=== PATIENT | male | born 1980 | race Caucasian/White ===

== ENCOUNTER 2021-07-10 16:16 | Inpatient (IN) | payer SELFPAY ==
[~2021-07-10] VITALS: Ht 187.9 cm; Wt 111.7 kg
[2021-07-10 16:33] VITALS: BP 140/60
[2021-07-10 17:32] LABS: BASO # 0.1 10*3/uL (0.0-0.1); BASO % 0.8 % (0.0-1.0); EOS % 0.3 % (1.0-4.0); LYMPH # 1.2 10*3/uL (1.3-4.4); LYMPH % 16.2 % (27.0-41.0); MEAN CELL VOLUME 89.3 fl (80.0-94.0); MEAN CORPUSCULAR HGB 29.6 pg (27.0-31.0); MEAN CORPUSCULAR HGB CONC 33.1 g/dl (33.0-37.0); MONO # 0.5 10*3/uL (0.1-1.0); MONO % 6.5 % (3.0-9.0); NEUT # 5.3 10*3/uL (2.3-7.9); NEUT % 74.8 % (47.0-73.0); PLATELET COUNT AUTOMATED 238 10*3/uL (130-400); RED BLOOD COUNT 5.04 10*6/uL (4.50-5.90); RED CELL DISTRI WIDTH 12.9 % (0-14.5); WHITE BLOOD COUNT 7.1 10*3/uL (4.8-10.8)
[2021-07-10 17:50] LABS: ALKALINE PHOSPHATASE 79 U/L (45-117); BUN 16 mg/dl (7-24); CHLORIDE 108 mmol/L (98-107); CREATININE 1.02 mg/dL (0.70-1.30); LIPASE 129 U/L (73-393); POTASSIUM 4.8 mmol/L (3.5-5.1); SGOT/AST 21 IU/L (3-35); SGPT/ALT 36 U/L (12-78); SODIUM 137 mmol/L (136-145); TOTAL PROTEIN 8.2 gm/dL (6.4-8.2)
[2021-07-10 17:51] LABS: ETHYL ALCOHOL < 3.0 mg/dl (<3)
[2021-07-10 18:05] LABS: ACT PARTIAL THROMBO TIME 28.7 SECONDS (20.0-32.1)
[2021-07-10 18:07] VITALS: BP 142/64
[2021-07-10 22:13] VITALS: BP 147/84
[2021-07-10] MEDS ORDERED: LEVOTHYROXINE125 MCG PO (22:30)
[2021-07-11 05:53] LABS: BUN 13 mg/dl (7-24); CHLORIDE 109 mmol/L (98-107); SODIUM 138 mmol/L (136-145)
[2021-07-11 06:01] LABS: BASO # 0.1 10*3/uL (0.0-0.1); BASO % 1.2 % (0.0-1.0); EOS # 0.1 10*3/uL (0.0-0.4); EOS % 2.6 % (1.0-4.0); LYMPH # 1.7 10*3/uL (1.3-4.4); LYMPH % 33.7 % (27.0-41.0); MEAN CELL VOLUME 88.2 fl (80.0-94.0); MEAN CORPUSCULAR HGB 29.4 pg (27.0-31.0); MEAN CORPUSCULAR HGB CONC 33.3 g/dl (33.0-37.0); MEAN PLATELET VOLUME 10.5 fl (9.6-12.3); MONO # 0.5 10*3/uL (0.1-1.0); MONO % 9.8 % (3.0-9.0); NEUT # 2.6 10*3/uL (2.3-7.9); NEUT % 51.5 % (47.0-73.0); PLATELET COUNT AUTOMATED 212 10*3/uL (130-400); RED BLOOD COUNT 4.76 10*6/uL (4.50-5.90); RED CELL DISTRI WIDTH 12.6 % (0-14.5)
[2021-07-11 06:06] LABS: ALKALINE PHOSPHATASE 66 U/L (45-117); CREATININE 0.91 mg/dL (0.70-1.30); SGOT/AST 15 IU/L (3-35); SGPT/ALT 30 U/L (12-78); TOTAL PROTEIN 6.9 gm/dL (6.4-8.2)
[2021-07-11 06:09] LABS: POTASSIUM 3.6 mmol/L (3.5-5.1)
[2021-07-11 08:00] VITALS: BP 139/90
[2021-07-11 08:22] LABS: VITAMIN D, 25-HYDROXY 20.1 ng/mL (30-100)
[2021-07-11 09:27] VITALS: BP 127/84
[2021-07-11 11:25] VITALS: BP 96/50
[2021-07-11 11:36] VITALS: BP 93/52
[2021-07-11 11:52] VITALS: BP 98/50
[2021-07-11 12:00] VITALS: BP 126/83
[2021-07-11] MEDS ORDERED: VITAMIN D250 MCG PO (12:55)
[2021-07-11] MEDS ORDERED: Carafate1 GM PO (12:55)
[2021-07-11] MEDS ORDERED: PANTOPRAZOLE SO40 MG PO (12:55)
== END 2021-07-11 13:40 | disposition home or self-care (01) | DRG 379 ==
LOC: ED 16:16 → 4E 20:59 → EDHOLD 20:59 → 4E 21:19
PROVIDERS: Emergency Medicine; Student in an Organized Health Care Education/Training Program; ADMIT Internal Medicine; ATTEND Internal Medicine
PROC: 0DB68ZX Excision of Stomach, Via Natural or Artificial Opening Endoscopic, Diagnostic (ICD-10-PCS; principal; 2021-07-11)
DX: K29.01 Acute gastritis with bleeding (principal); K20.91 Esophagitis, unspecified with bleeding; E87.8 Other disorders of electrolyte and fluid balance, not elsewhere classified; K29.81 Duodenitis with bleeding; E66.9 Obesity, unspecified; E16.2 Hypoglycemia, unspecified; E55.9 Vitamin D deficiency, unspecified; Z79.899 Other long term (current) drug therapy; Z80.1 Family history of malignant neoplasm of trachea, bronchus and lung; Z68.31 Body mass index [BMI] 31.0-31.9, adult